=== PATIENT | female | born 1995 | race Two or more races ===

== ENCOUNTER 2023-06-10 12:56 | Emergency (ER) | payer OTHER ==
[~2023-06-10] VITALS: Ht 167.6 cm; Wt 87.7 kg
[2023-06-10 13:21] VITALS: BP 140/90; PULSE 94; RESP 18; TEMP 99; O2SAT 97
[2023-06-10] MEDS ORDERED: AUG875T PO (16:32)
[2023-06-10] MEDS ORDERED: TETANUS-DIPTH-ACEL PERTUSSIS 0.5ML SYR Tdap IM ONE (16:45)
== END 2023-06-10 17:04 | disposition home or self-care (01) ==
LOC: ER 12:56
DX: S61.051A Open bite of right thumb without damage to nail, initial encounter (principal); W55.01XA Bitten by cat, initial encounter; Y93.89 Activity, other specified; Y92.89 Other specified places as the place of occurrence of the external cause; Y99.8 Other external cause status